=== PATIENT | male | born 1940 | race Caucasian/White ===

== ENCOUNTER → 2017-04-15 | Outpatient (CLI) | payer MEDICARE ==
--- NOTE | 2017-04-15 10:36 | RADIOLOGY REPORT PS360 ---
PROCEDURE: 2-D M-mode and color Doppler study INDICATIONS FOR THE TEST: Chest pain COPD Heart Murmur Tobacco Smoking Palpitations Fatigue+ Syncope Edema Hypertension+Diabetes Mellitus+ Rheumatic Fever SOB+MARTÍNEZ Obesity+Hyperlipidemia+ Family History HD Additional History smokeless tobacco, ABN EKG PATIENT INFORMATION HEIGHT: 71 WEIGHT: 250 GENDER: Male B/P: 180/94 2-D/M-MODE INTERPRETATION: 2-D MEASUREMENTS OBSERVED VALUES IN CMS 2-D measurements are off axis, hence not mentioned. 2D 1. Technically difficult study because of the patient's factor and poor acoustic windows. 2. The left atrium is mildly enlarged, left ventricle is normal size, there is mild concentric left ventricular hypertrophy, visually estimated ejection fraction of 55% with no obvious regional wall motion abnormality, the endocardial surfaces are very poorly visualized, a repeat study with Definity contrast is recommended. 3. The right atrium and right ventricle are relatively normal size and function. 4. The aortic valve is thickened and calcified, leaflet continue to display mobility. 5. The mitral and tricuspid valves are grossly normal. 6. No significant pericardial effusion noted. 7. The pulmonic valve is poorly visualized. DOPPLER INTERROGATION: Doppler interrogation of the aortic, mitral and tricuspid valvular presence of mild aortic, mild mitral and tricuspid regurgitation, tricuspid regurgitant jet velocity is insufficient for calculation of the right ventricular systolic pressure, diastolic parameters are inconclusive. CONCLUSION: 1. Technically very difficult study because of the patient's factor and poor acoustic windows, repeat study with Definity contrast is recommended. 2. Mildly enlarged left atrium, normal left ventricular size, mild concentric left ventricular hypertrophy, visually estimated ejection fraction of 55% with no obvious regional wall motion abnormality, endocardial surface of poorly visualized. 3. Thickened and calcified aortic valve without aortic stenosis, there is mild aortic insufficiency present. 4. Mild mitral and tricuspid regurgitation. 5. No significant pericardial effusion noted.
== END ==
LOC: RT 04-07 08:00
DX: R06.09 Other forms of dyspnea (principal)